=== PATIENT | male | born 1970 | race Caucasian/White ===

== ENCOUNTER 2018-05-07 14:16 | Outpatient (CLI) | payer OTHER ==
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
== END 2018-05-07 15:35 ==
LOC: RAD 14:16
PROVIDERS: ATTEND Family Medicine
DX: M79.641 Pain in right hand (principal)
CPT/HCPCS: 73130